=== PATIENT | female | born 1990 | race Caucasian/White ===

== ENCOUNTER 2023-06-11 00:50 | Emergency (ER) | payer OTHER, SELFPAY ==
[2023-06-11 00:55] VITALS: BP 126/84
[2023-06-11 01:12] VITALS: BP 127/79
[2023-06-11 01:21] VITALS: BMI 19.2
[2023-06-11 01:26] LABS: % Basophils 1.3 % (0-2); % Eosinophils 0.5 % (0-6); % Immature Granulocytes 0.2 % (0-0.5); % Lymphocytes 18.3 % (20.5-51.1); % Monocytes 8.3 % (1.7-9.3); % Neutrophils 71.4 % (42.2-75.2); Absolute Basophils 0.1 10^3/uL (0-0.2); Absolute Eosinophils 0.1 10^3/uL (0-0.7); Absolute Lymphocytes 1.7 10^3/uL (1.2-3.4); Absolute Monocytes 0.8 10^3/uL (0.1-0.6); Absolute Neutrophils 6.6 10^3/uL (1.4-6.5); Hematocrit 39.2 % (37.0-47.0); Hemoglobin 13.8 g/dL (12.0-16.0); Mean Corp Hgb Conc. 35.2 g/dL (33.0-37.0); Mean Corpuscular Hgb 32.4 pg (27.0-31.0); Mean Platelet Volume 8.8 fL (7.4-10.4); Nucleated Red Blood Cells % 0 %; Platelet Count 344 10^3/uL (130-400); Red Blood Cell Count 4.26 10^6/uL (4.20-5.40); Red Cell Dist. Width 12.6 % (11.5-14.5); White Blood Cell Count 9.3 10^3/uL (4.8-10.8)
--- NOTE | 2023-06-11 01:37 | ED.GENMED ---
History of Present Illness
<WILFREDO Rhodes - Last Filed: 06/11/23 01:47>
General
Chief Complaint: Chest Problem
Source: patient
Exam Limitations: none
Time Seen by Provider: 06/11/23 01:25
Nursing documentation reviewed up to this point in time: agreed with
Travel History
Have you had any contact with someone who has COVID-19?: No
Do you have any symptoms of coronavirus? Fever > 100 degrees, chills, cough, shortness of breath, sore throat, loss of taste or smell, muscle aches, or headache?: No
History of Present Illness
History of Present Illness:
patient is a 33 y/o female with PMH of anxiety presenting for chest pain x 2 hours. Patient states there was nothing specifically going on when she first noticed the pain Patient describes it as a dull pain with no radiation. Patient states nothing
makes it better or worse. Patient states she has had one prior episode siilar to this and she was diagnosed with pleuricy. Patient admits to associated SOB that feels like 'she cant take a deep breath.' Patient admits to new onset blue hands that
she noticed worse voer her knuckles. Patient admits to not drinking any water in over 24 hours. Patient admits to muscle soreness that started at the same time as the chest pain. Patient states that she 'fells like she is having a panic attack.'
patient admits to history of panic attacks that she takes xanax for. Patient admits to taking 1 xanax erlier today with no relief. Patient denies ARNOLD, palpitations, abdominal pain, sweating, visual changes. patient admits to smoking cigarettes
earlier today. patient admits to drinking 5 beers earlier in the night. Patient admits to doing 'a bump of cocaine' 5 hours ago.
Past History
<WILFREDO Rhodes - Last Filed: 06/11/23 01:47>
Past History
ED Past Surgical History: Other ([place] teeth)
Social History
Tobacco: Smoker
Alcohol: Occasional
Personal: Single
Living: with family
Employment: Employed (receptionist scheduler.)
Family History
Family History: Other
Review of Systems
<WILFREDO Rhodes - Last Filed: 06/11/23 01:47>
Review of Systems
Respiratory: Reports trouble breathing
Cardiac: Reports chest pain
ABD/GI: Reports no symptoms
: Reports no symptoms
Musculoskeletal: Reports no symptoms
Skin: Reports no symptoms
Neurological: Reports dizzy and weakness
Hematologic/Lymphatic: Reports no symptoms
Psychiatric: Reports anxiety
Phy Exam
<WILFREDO Rhodes - Last Filed: 06/11/23 01:47>
General Physical Exam
General Presentation: well appearing and no apparent distress
General Skin: warm and dry
General Habitus: normal
General Mental: alert
General Hydration: appears well hydrated
ENT Exam
ENT Exam: EOMI, pharynx normal, neck supple and normocephalic
Eye Exam
Eye Exam: PERRL, cornea clear and conjunctiva normal
Cardiovascular Exam
Cardiovascular Exam: regular rate/rhythm, no JVD and no murmur
Pulmonary Exam
Pulmonary Exam: lungs clear, no respiratory distress, chest non tender and no stridor
Gastrointestinal Exam
Gastrointestinal Exam: normal bowel sounds, non tender, soft, no organomegaly, no pulsatile mass and non distended
Neurological Exam
Neurological Exam: alert and oriented x3
Musculoskeletal Exam
Musculoskeletal Exam: full ROM and no edema
Skin Exam
Skin Exam: normal color, warm/dry, no rash and no petechia
Psychiatric Exam
Psychiatric Exam: anxious
<Juan José Espinosa DO - Last Filed: 06/11/23 02:57>
Physical Exam
Physical Exam:
Physical Exam
General: no apparent distress, not acutely ill
Neck: No jaundice
Heart: Regular strong radial pulses
Lungs: no acute respiratory distress. clear bilaterally
Neuro: alert and oriented. no focal neurological deficits
Skin: Multiple tattoo sleeves down into her wrist
Psychiatric: cooperative
Extremities: no edema. no calf tenderness. negative homans. good distal pulses
Course
<WILFREDO Rhodes - Last Filed: 06/11/23 01:47>
Orders/Labs/Results
Orders:
Orders
06/11/23 00:58
Electrocardiogram (*1) Urgent
Reason for Study: Chest Pain
EKG- Treatment ONCE
06/11/23 01:19
Complete Blood Count/With Diff Urgent
Comprehensive Metabolic Panel Routine
Lipase Routine
Comment: ADD ON
Troponin I Urgent
06/11/23 01:54
Add On- LAB Urgent
Tests Added?: lipase
0.9% Sodium Chloride 1000 ml [Nss] 1,000 ml IV BOLUS
CR Chest - 2 Views Urgent
Comment:
Reason For Exam: cp
Abnormal Lab Results
06/11/23
01:19
MCH 32.4 H pg
(27.0-31.0)
Absolute Neuts (auto) 6.6 H 10^3/uL
(1.4-6.5)
Absolute Monos (auto) 0.8 H 10^3/uL
(0.1-0.6)
Lymphocytes % 18.3 L %
(20.5-51.1)
BUN 6 L mg/dl
(7-17)
Glucose 106 H mg/dl
(70-99)
06/11/23 01:19
06/11/23 01:19
Vital Signs
Initial and Last Documented VS:
Initial Vital Signs
Temp Pulse Resp BP Pulse Ox
97.8 F 120 24 126/84 100
06/11/23 00:55 06/11/23 00:55 06/11/23 00:55 06/11/23 00:55 06/11/23 00:55
Last Documented Vital Signs
Temp Pulse Resp BP Pulse Ox
97.8 F 83 13 112/74 100
06/11/23 00:55 06/11/23 02:00 06/11/23 02:00 06/11/23 02:00 06/11/23 02:00
<Juan José Espinosa, DO - Last Filed: 06/11/23 02:57>
Orders/Labs/Results
Orders:
Orders
06/11/23 00:58
Electrocardiogram (*1) Urgent
Reason for Study: Chest Pain
EKG- Treatment ONCE
06/11/23 01:19
Complete Blood Count/With Diff Urgent
Comprehensive Metabolic Panel Routine
Lipase Routine
Comment: ADD ON
Troponin I Urgent
06/11/23 01:54
Add On- LAB Urgent
Tests Added?: lipase
0.9% Sodium Chloride 1000 ml [Nss] 1,000 ml IV BOLUS
CR Chest - 2 Views Urgent
Comment:
Reason For Exam: cp
Abnormal Lab Results
06/11/23
01:19
MCH 32.4 H pg
(27.0-31.0)
Absolute Neuts (auto) 6.6 H 10^3/uL
(1.4-6.5)
Absolute Monos (auto) 0.8 H 10^3/uL
(0.1-0.6)
Lymphocytes % 18.3 L %
(20.5-51.1)
BUN 6 L mg/dl
(7-17)
Glucose 106 H mg/dl
(70-99)
06/11/23 01:19
03/19/24 01:19
Vital Signs
Initial and Last Documented VS:
Initial Vital Signs
Temp Pulse Resp BP Pulse Ox
97.8 F 120 24 126/84 100
06/11/23 00:55 06/11/23 00:55 06/11/23 00:55 06/11/23 00:55 06/11/23 00:55
Last Documented Vital Signs
Temp Pulse Resp BP Pulse Ox
97.8 F 83 13 112/74 100
06/11/23 00:55 06/11/23 02:00 06/11/23 02:00 06/11/23 02:00 06/11/23 02:00
<WILFREDO Rhodes - Last Filed: 06/11/23 01:47>
MDM/Problems Addressed
Differential Diagnosis Includes:
panic attack
UT
cocaine induced vasospasm
PE
MDM/Problems Addressed:
chest pain
Chronic conditions affecting care: Psychiatric illness (anxiety)
<WILFREDO Rhodes - Last Filed: 06/11/23 01:47>
*Critical Care Note
Total Time (30-74mins, 75-104mins- exclusive of procedures): Not Applicable
<Juan José Espinosa DO - Last Filed: 06/11/23 02:57>
Update Note
Update Note:
Update, labs noted chest x-ray noted patient resting comfortably
ED Attending Note
<WILFREDO Rhodes - Last Filed: 06/11/23 01:47>
-
Portions of this chart may have been created with voice recognition software.� Occasional wrong word or��sound alike� substitutions may have occurred due to the inherent limitations of voice recognition software.
<Juan José Espinosa DO - Last Filed: 06/11/23 02:57>
ED Attending Note
Patient seen and examined by attending physician: Yes
I performed the substantive portion of visit, reviewed & personally made and approve the management plan that is documented in note by myself or MARIE.: Yes
ED Attending Note:
Seen with student examined independently, 33-year-old female presents with some chest pain, anxiety, change in color in her knuckles, admit to drinking alcohol and using cocaine, here she appears well she has multiple tattoos she is strong radial
pulses, EKG noted labs are noted we will hydrate check chest x-ray
Discharge Plan
Departure
Patient Disposition: Home (Routine Discharge)
Date of Disposition: 06/11/23
Time of Disposition: 02:56
Patient with high blood pressure during this ER visit?: No
Condition: Good
Discharge Problem:
Chest pain
Instructions: Chest Pain PCP Follow Up
Prescriptions:
No Action
alprazolam 1 MG tablet
1 mg PO BID PRN (Reason: anxiety)
Referrals:
Juan Canales MD [Family Provider] - Next open appointment
Interventions
Interventions:
*Risk Screen - Suicide Last Done: 06/11/23 00:55
*General Assessment Last Done: 06/11/23 01:21
*Neglect/Abuse Screening Last Done: 06/11/23 00:55
ED- Fall Risk Assessment Last Done: 06/11/23 01:21
*ED COVID-19 Vaccine History Last Done: 06/11/23 01:21
ED- Cardiac Assessment Last Done: 06/11/23 01:21
ED- Pulmonary Assessment Last Done: 06/11/23 01:21
[2023-06-11 01:40] LABS: ALT (SGPT) 18 U/L (0-35); AST (SGOT) 25 U/L (14-36); Albumin 4.9 g/dl (3.5-5.0); Alkaline Phosphatase 67 U/L (38-126); Blood Urea Nitrogen 6 mg/dl (7-17); Calcium 9.3 mg/dl (8.4-10.2); Carbon Dioxide 27 mmol/L (22-30); Chloride 103 mmol/L (98-107); Estimated Creatinine Clearance 123 ml/min; Glucose 106 mg/dl (70-99); Potassium 3.9 mmol/L (3.5-5.1); Sodium 141 mmol/L (135-145); Total Bilirubin 0.4 mg/dl (0.2-1.3); Total Protein 7.4 g/dl (6.3-8.2); eGFR > 60.00
[2023-06-11 01:51] LABS: Troponin I < 0.012 ng/ml
[2023-06-11] MEDS: NSS 1000 IV (01:59)
[2023-06-11 02:00] VITALS: BP 112/74
[2023-06-11 02:31] LABS: Lipase 40 U/L (23-300)
== END 2023-06-11 03:09 | disposition home or self-care (01) ==
LOC: EMR 00:50
PROVIDERS: EMERGENCY PHYSICIAN Emergency Medicine; FAMILY PHYSICIAN Family Medicine
DX: R07.89 Other chest pain (principal); F41.9 Anxiety disorder, unspecified; F41.0 Panic disorder [episodic paroxysmal anxiety]; F17.210 Nicotine dependence, cigarettes, uncomplicated
CPT/HCPCS: 99283; 96360; 71046; 80053; 83690; 84484; 85025; 93005

== ENCOUNTER → 2023-08-21 16:54 | Outpatient (REF) | payer OTHER, SELFPAY | LOC: RAD 16:54 | PROVIDERS: ATTENDING PHYSICIAN Nurse Practitioner Family | DX: I88.1 Chronic lymphadenitis, except mesenteric (principal) | CPT/HCPCS: 76536 ==

== ENCOUNTER 2024-02-08 13:37 | Emergency (ER) | payer OTHER, SELFPAY ==
[2024-02-08 13:41] VITALS: BP 115/77
[2024-02-08] MEDS: LET TOPICAL ANESTHETIC GEL 3 ML TOPICAL (14:11)
--- NOTE | 2024-02-08 14:43 | ED.GENMED ---
History of Present Illness
General
Chief Complaint: Skin Surface Trauma
Time Seen by Provider: 02/08/24 13:51
History of Present Illness
History of Present Illness:
33-year-old female presents to the emergency department for ration of a laceration to the right forearm sustained at home with a knife today. No bleeding at this time. Last tetanus was within 5 years
Past History
Past History
ED Past Surgical History: Other ([place] teeth)
Social History
Tobacco: Smoker
Alcohol: Occasional
Personal: Single
Living: with family
Employment: Employed (ticket sales supervisor.)
Family History
Family History: Other
Review of Systems
Review of Systems
Allergies reviewed?: Yes
All Other Systems: ROS reviewed and negative except as documented in HPI and ROS
Phy Exam
Physical Exam
Physical Exam:
GEN: Well appearing, NAD, WDWN
HEENT: Oral mucosa moist, no scleral icterus
Cardiac: Regular rate
Lung: No respiratory distress, no tachypnea
MSK: No gross deformity or injuries
Skin: Good color, no pallor or jaundice, no rashes. 1 cm partial-thickness laceration to the ulnar aspect of the distal right forearm, no active bleeding
Neuro: AO x3, moves all extremities freely
Psych: Calm, cooperative
Course
Orders/Labs/Results
Orders:
Orders
02/08/24 14:05
Lidocaine/Epinephrine/Tetracai [Let Topical Anesthetic Gel] 3 ml TOPICAL NOW STA
Vital Signs
Initial and Last Documented VS:
Initial Vital Signs
Temp Pulse Resp BP Pulse Ox
97.4 F 98 18 115/77 96
02/08/24 13:41 02/08/24 13:41 02/08/24 13:41 02/08/24 13:41 02/08/24 13:41
Last Documented Vital Signs
Temp Pulse Resp BP Pulse Ox
97.4 F 98 18 115/77 96
02/08/24 13:41 02/08/24 13:41 02/08/24 13:41 02/08/24 13:41 02/08/24 13:41
Procedures
Laceration Closure
Right Arm:
Status of Wound: clean
Size of Wound in cm: 1
Description of Wound Edges: sharp
Preparation: cleaned with soap & water
Anesthesia: Topical-LET
Type of Closure: single layer closure
Skin Closure Material: 6-0 nylon
Number of sutures: 4
MDM/Problems Addressed
MDM/Problems Addressed:
Minor laceration repaired with 4 external sutures
*Critical Care Note
Total Time (30-74mins, 75-104mins- exclusive of procedures): Not Applicable
ED Attending Note
-
Portions of this chart may have been created with voice recognition software.� Occasional wrong word or��sound alike� substitutions may have occurred due to the inherent limitations of voice recognition software.
Discharge Plan
Departure
Patient Disposition: Home (Routine Discharge)
Date of Disposition: 02/08/24
Time of Disposition: 14:43
Patient with high blood pressure during this ER visit?: No
Discharge Problem:
Laceration of forearm, right
Instructions: Laceration Repair With Stitches (DC)
Prescriptions:
No Action
alprazolam 1 MG tablet
1 mg PO BID PRN (Reason: anxiety)
Referrals:
Verona Bermudez PA [Family Provider] -
Activity Restrictions/Additional Instructions:
Suture removal in 7 days
Interventions
Interventions:
*Risk Screen - Suicide Last Done: 02/08/24 13:41
*General Assessment Last Done: 02/08/24 13:41
*Neglect/Abuse Screening Last Done: 02/08/24 13:41
ED- Fall Risk Assessment Last Done: 02/08/24 15:00
*ED COVID-19 Vaccine History Last Done: 02/08/24 14:11
*Nursing Disposition Last Done: 02/08/24 15:00
ED-Skin Assessment Last Done: 02/08/24 15:00
Discharge Date and Time
Discharge Date/Time: 02/08/24 15:00
Print Language: LAO
== END 2024-02-08 15:00 | disposition home or self-care (01) ==
LOC: EMR 13:37
PROVIDERS: EMERGENCY PHYSICIAN Student in an Organized Health Care Education/Training Program; FAMILY PHYSICIAN Physician Assistant Medical
DX: S51.811A Laceration without foreign body of right forearm, initial encounter (principal); W26.0XXA Contact with knife, initial encounter; F17.200 Nicotine dependence, unspecified, uncomplicated
CPT/HCPCS: 12001; 99282

== ENCOUNTER → 2024-12-04 08:55 | Outpatient (REF) | payer OTHER, SELFPAY | LOC: WDC 08:55 | PROVIDERS: ATTENDING PHYSICIAN Family Medicine | DX: N63.11 Unspecified lump in the right breast, upper outer quadrant (principal); N64.52 Nipple discharge | CPT/HCPCS: 76642; 77062; 77066 ==

== ENCOUNTER → 2025-01-15 13:56 | Outpatient (REF) | payer OTHER, SELFPAY | LOC: MRI 3T 13:56 | PROVIDERS: ATTENDING PHYSICIAN Surgery; FAMILY PHYSICIAN Physician Assistant Medical | DX: N63.11 Unspecified lump in the right breast, upper outer quadrant (principal); N64.52 Nipple discharge | CPT/HCPCS: 77049; A9585 ==